=== PATIENT | male | born 1990 | race Hispanic/Latino ===

== ENCOUNTER 2025-02-17 20:00 | Emergency (ER) | payer OTHER ==
[~2025-02-17] VITALS: Ht 172.7 cm; Wt 99.8 kg
[2025-02-17 21:00] VITALS: PULSE 64; RESP 17; TEMP 98.8
[2025-02-17 21:44] LABS: AMPHETAMINES SCREEN,URINE NEGATIVE (NEGATIVE); CANNABINOIDS SCREEN,URINE NEGATIVE (NEGATIVE); COCAINE SCREEN,URINE NEGATIVE (NEGATIVE); LEUKOCYTE ESTERASE ,URINE NEGATIVE (NEGATIVE); METHADONE SCREEN, URINE NEGATIVE (NEGATIVE); OPIATES SCREEN,URINE NEGATIVE (NEGATIVE); PROTEIN,URINE DIPSTICK NEGATIVE (NEGATIVE); URINE UROBILINOGEN 1 mg/dL (0.2 - 1)
[2025-02-17 21:52] LABS: EPITHELIAL CELLS,URINE FEW /LPF; WBC,URINE (MAN) 0-5 /HPF (0-5)
[2025-02-17] MEDS: KETOROLAC TROMETHAMINE 60 MG/2 ML VIAL IM STA (21:58)
[2025-02-18] MEDS: Morphine 4mg INJECTION 4 MG/ML INJ IM STA (00:09)
[2025-02-18] MEDS ORDERED: ONDANSETRON HCL 4 MG ORAL DISINTEGRATING TAB ONE (00:17)
[2025-02-18] MEDS ORDERED: ULTRAM 50MG50 MG PO (00:18)
[2025-02-18] MEDS: ONDANSETRON HCL 4 MG ORAL DISINTEGRATING TAB PO ONE (00:51)
[2025-02-18 00:55] VITALS: BP 127/85; O2SAT 100
== END 2025-02-18 00:57 | disposition home or self-care (01) ==
LOC: ER 20:11
DX: M54.50 Low back pain, unspecified (principal); G89.29 Other chronic pain
CPT/HCPCS: 74176; 80307; 81001; 99283; J1885; J2270; Q0162